=== PATIENT | female | born 1985 | race Two or more races ===

== ENCOUNTER → 2018-04-23 20:19 | Emergency (ER) | payer OTHER ==
[~2018-04-23 20:19] MED LIST: Ketorolac INJ* 30 MG/ML 1 ML VIAL IM ONE; Penicillin VK TAB* 250 MG PO ONE
--- NOTE | 2018-04-23 21:39 | ED ---
Throat Pain/Nasal Congestion - HPI Summary HPI Summary: 32 year old female presents with dental pain for the past couple days. She states she has follow-up with dentist on . She states her tooth feels infected. It is her right upper jaw. She denies any fevers. No swelling. No chest pain or shortness of breath. No difficulty swallowing. States they've been taking Motrin without relief. Is not currently on antibiotics. - History of Current Complaint Chief Complaint: EDDentalPain Time Seen by Provider: 04/23/18 20:57 - Allergies/Home Medications Allergies/Adverse Reactions: Allergies Allergy/AdvReac Type Severity Reaction Status Date / Time No Known Allergies Allergy Verified 04/23/18 20:26 PMH/Surg Hx/FS Hx/Imm Hx Endocrine/Hematology History: Denies: Hx Anticoagulant Therapy Respiratory History: Denies: Hx Asthma - Surgical History Surgery Procedure, Year, and Place: CHOLECYSTECTOMY Infectious Disease History: No Infectious Disease History: Denies: Traveled Outside the [place] in Last 30 Days - Family History Known Family History: Positive: Hypertension - Social History Alcohol Use: Rare Substance Use Type: Reports: None Smoking Status (MU): Former Smoker Review of Systems Negative: Fever Positive: Dental Pain Negative: Chest Pain Negative: Shortness Of Breath All Other Systems Reviewed And Are Negative: Yes Physical Exam Triage Information Reviewed: Yes Vital Signs On Initial Exam: Initial Vitals Temp Pulse Resp BP Pulse Ox 98.5 F 94 14 139/78 98 04/23/18 20:24 04/23/18 20:24 04/23/18 20:24 04/23/18 20:24 04/23/18 20:24 Vital Signs Reviewed: Yes Appearance: Positive: Well-Appearing Skin: Positive: Warm, Dry Head/Face: Positive: Normal Head/Face Inspection Eyes: Positive: Normal, EOMI, XOCHITL, Conjunctiva Clear ENT: Positive: Normal ENT inspection, Pharynx normal, TMs normal Dental: Positive: Percussion Tenderness @ - 1 Neck: Positive: Supple, Nontender, No Lymphadenopathy Respiratory/Lung Sounds: Positive: Clear to Auscultation, Breath Sounds Present Cardiovascular: Positive: Normal, RRR Musculoskeletal: Positive: Normal Neurological: Positive: Normal Psychiatric: Positive: Normal Diagnostics - Vital Signs Vital Signs Temp Pulse Resp BP Pulse Ox 04/23/18 20:24 98.5 F 94 14 139/78 98 - Laboratory Lab Statement: Any lab studies that have been ordered have been reviewed, and results considered in the medical decision making process. EENT Course/Dx - Course Course Of Treatment: 32 year old female presents with dental pain for the past couple days. She states she has follow-up with dentist on . She states her tooth feels infected. It is her right upper jaw. She denies any fevers. No swelling. No chest pain or shortness of breath. No difficulty swallowing. States they've been taking Motrin without relief. Is not currently on antibiotics. On exam has tenderness over tooth 1. no abscess. discussed that will treat with PCN and will short course of pain medication. told to keep follow up with dentist. patient understand and agrees with plan. - Differential Diagnoses Differential Diagnoses: Dental Abscess, Dental Caries, Fractured Tooth - Diagnoses Provider Diagnoses: Dental infection Discharge - Sign-Out/Discharge Documenting (check all that apply): Patient Departure - Discharge Plan Condition: Good Disposition: HOME Prescriptions: Penicillin VK TAB* [Penicillin VK 250 mg Tab*] 250 mg PO QID #27 tab traMADol TAB* [Ultram*] 50 mg PO Q12H PRN #4 tab MDD 2 PRN Reason: Pain Patient Education Materials: Toothache (ED) Referrals: Jose Castañeda MD [Primary Care Provider] - Additional Instructions: Take antibiotics: 4 times a day for 7 days, first dose given in ED Use ibuprofen every 6 hours and narcotic for break through pain at night every 12 hours Avoid hard, crunchy food until seen by dentist Follow up with dentist as soon as possible Return to ED if develop fever, shortness of breath, pain with eye movement or swelling around eye - Billing Disposition and Condition Condition: GOOD Disposition: Home Images - Images Dental: 1 - pain
[2018-04-23 21:56] VITALS: BP 116/73
== END | disposition home or self-care (01) ==
LOC: ED 20:19
DX: K04.7 Periapical abscess without sinus (principal); K08.89 Other specified disorders of teeth and supporting structures; Z87.891 Personal history of nicotine dependence
CPT/HCPCS: 96372; 99282; A9270-GY; J1885